=== PATIENT | female | born 1950 | race Caucasian/White ===

== ENCOUNTER → 2019-06-01 | Outpatient (CLI) | payer MEDICARE ==
--- NOTE | 2019-06-01 15:46 | RADIOLOGY REPORT (SQ) ---
EXAM DESCRIPTION: SHOULDER RIGHT 2 OR MORE VIEWS COMPLETED DATE/TIME: 06/01/2019 2:53 pm REASON FOR STUDY: S/P FALL W PAINFUL ABDUCTION M25.511 PAIN IN RT SHLDR M25.511 PAIN IN RIGHT SHOUL FENG COMPARISON: None. NUMBER OF VIEWS: Two views. TECHNIQUE: Y-view, internally rotated images acquired of the right shoulder. LIMITATIONS: None. FINDINGS: MINERALIZATION: Normal. BONES: There appears to be a nondisplaced fracture of the greater tuberosity. JOINTS: No dislocation. VISUALIZED LUNGS AND RIBS: No pneumothorax. No rib fracture. SOFT TISSUES: No radiopaque foreign body. OTHER: No other significant finding. IMPRESSION: There appears to be a nondisplaced fracture of the greater tuberosity. No dislocation. TECHNICAL DOCUMENTATION: JOB ID: [id number] [employer]- All Rights Reserved Reading location - IP/workstation name: [email or web address]
== END ==
LOC: RAD 14:36
PROVIDERS: ATTEND Family Medicine
DX: S42.92XA Fracture of left shoulder girdle, part unspecified, initial encounter for closed fracture (principal); W19.XXXA Unspecified fall, initial encounter; M25.511 Pain in right shoulder